=== PATIENT | female | born 1955 | race Caucasian/White ===

== ENCOUNTER 2018-01-25 11:34 | Emergency (ER) | payer BC ==
[~2018-01-25] VITALS: Ht 162.6 cm; Wt 75.0 kg
[2018-01-25 11:36] VITALS: BP 156/78; TEMP 98.1
[2018-01-25] MEDS ORDERED: ATIVAN 0.50.5 MG/TAB PO (12:05)
[2018-01-25] MEDS ORDERED: CRESTOR 10MG10 MG PO (12:05)
[2018-01-25] MEDS ORDERED: IMITREX100 MG PO (12:06)
[2018-01-25] MEDS ORDERED: FEMRING0.1 MG/24 VG (12:06)
[2018-01-25 13:03] VITALS: PULSE 80
== END 2018-01-25 13:04 | disposition home or self-care (01) ==
LOC: COL.ER 11:34
DX: S61.411A Laceration without foreign body of right hand, initial encounter (principal); Z23 Encounter for immunization; Z98.51 Tubal ligation status; Z90.710 Acquired absence of both cervix and uterus; W01.198A Fall on same level from slipping, tripping and stumbling with subsequent striking against other object, initial encounter